=== PATIENT | female | born 1945 | race Caucasian/White ===

== ENCOUNTER → 2018-04-04 13:08 | Outpatient (CLI) | payer MEDICARE, OTHER ==
[2013-01-09 10:08] VITALS: BMI 24.4
[~2018-04-04 13:08] MED LIST: BACTRIM DS TABL1 TAB PO; LISINOPRIL5 MG PO; PLAQUENIL 200200 MG PO; TYLENOL PM1 TAB PO; XANAX0.25 MG PO
== END | disposition home or self-care (01) ==
LOC: D.US 03-30 13:00
DX: E04.1 Nontoxic single thyroid nodule (principal); E04.2 Nontoxic multinodular goiter

== ENCOUNTER 2018-04-04 16:27 | Emergency (ER) | payer MEDICARE, OTHER ==
[~2018-04-04] VITALS: Ht 167.6 cm; Wt 72.7 kg
[~2018-04-04 16:27] MED LIST changes: -LISINOPRIL5 MG PO; -PLAQUENIL 200200 MG PO; -TYLENOL PM1 TAB PO; -XANAX0.25 MG PO
[2018-04-04 16:32] VITALS: Ht 167.6 cm; Wt 72.7 kg
[2018-04-04] MEDS ORDERED: PLAQUENIL 200200 MG PO (16:40)
[2018-04-04] MEDS ORDERED: LISINOPRIL5 MG PO (16:40)
[2018-04-04] MEDS ORDERED: XANAX0.25 MG PO (16:41)
[2018-04-04] MEDS ORDERED: TYLENOL PM1 TAB PO (16:42)
[2018-04-04 17:10] LABS: BASOPHILS 0.4 % (0-2); EOSINOPHILS 1.3 % (0-7); IMMATURE GRANULOCYTES 0.2 % (0-5); LYMPHOCYTES 26.9 % (15-50); MCH 31.7 pg (26.0-34.0); MCHC 33.3 g/dL (31.0-37.0); MEAN PLATELET VOLUME 9.4 fL (7.4-10.4); MONOCYTES 5.4 % (2-11); NEUTROPHILS 65.8 % (40-80); PLATELET COUNT 208 10x3/uL (130-400); RBC 3.79 10x6/uL (4.00-5.40); RDW 12.5 % (11.5-14.5); WBC 5.5 10x3/uL (4.8-10.8)
[2018-04-04 17:41] LABS: ANION GAP 13.9 mmol/L (8-16); BILIRUBIN - TOTAL 0.49 mg/dL (0.2-1.3); CALCIUM 9.3 mg/dL (8.5-10.1); CARBON DIOXIDE 27.5 mmol/L (21.0-32.0); CREATININE - SERUM 1.2 mg/dL (0.6-1.3); POTASSIUM - SERUM 3.4 mmol/L (3.5-5.1); PROTEIN - SERUM 7.8 g/dL (6.4-8.2)
[2018-04-04 18:30] VITALS: BP 123/54
== END 2018-04-04 18:32 | disposition home or self-care (01) ==
LOC: D.ER 16:27
PROVIDERS: Emergency Medicine
DX: F41.0 Panic disorder [episodic paroxysmal anxiety] (principal); R51 Headache; R53.1 Weakness; R06.02 Shortness of breath; E07.9 Disorder of thyroid, unspecified; M32.9 Systemic lupus erythematosus, unspecified